=== PATIENT | male | born 1935 | race Caucasian/White ===

== ENCOUNTER 2016-09-15 04:29 | Emergency (ER) | payer MEDICARE, BC | END 2016-09-15 09:30 | disposition home or self-care (01) | LOC: ER 04:29 | DX: R09.1 Pleurisy (principal); K21.9 Gastro-esophageal reflux disease without esophagitis; I10 Essential (primary) hypertension; E78.5 Hyperlipidemia, unspecified; E66.9 Obesity, unspecified; Z79.899 Other long term (current) drug therapy | CPT/HCPCS: 36415; 96361; 96374; Q9967 ==